=== PATIENT | female | born 1990 | race Caucasian/White ===

== ENCOUNTER 2018-04-17 10:19 | Emergency (ER) | payer MEDICAID ==
[~2018-04-17] VITALS: Ht 172.7 cm; Wt 62.0 kg
[2018-04-17 10:25] VITALS: BP 113/43
== END 2018-04-17 11:21 | disposition home or self-care (01) ==
LOC: ED 11:15
DX: K02.9 Dental caries, unspecified (principal)
CPT/HCPCS: 99283

== ENCOUNTER 2018-05-26 18:20 | Emergency (ER) | payer MEDICAID ==
[~2018-05-26] VITALS: Ht 172.7 cm; Wt 64.0 kg
[2018-05-26 18:34] VITALS: BP 132/82
[2018-05-26 19:00] LABS: BASOPHILS # (AUTO) 0.02 x10^3/uL (0-0.1); BASOPHILS % (AUTO) 0 % (0-1); EOSINOPHILS # (AUTO) 0.01 x10^3/uL (0-0.4); EOSINOPHILS % (AUTO) 0 % (1-7); LYMPHOCYTES # (AUTO) 1.04 x10^3/uL (1-3.4); LYMPHOCYTES % (AUTO) 16 % (22-44); MD NO; MEAN CORPUSCULAR HEMOGLOBIN 30.6 pg (27.0-34.8); MEAN CORPUSCULAR HGB CONC 34.4 g/dL (32.4-35.8); MEAN CORPUSCULAR VOLUME 88.8 fL (80-100); MONOCYTES # (AUTO) 0.54 x10^3/uL (0.2-0.8); MONOCYTES % (AUTO) 8 % (2-9); NEUTROPHILS # (AUTO) 4.83 x10^3/uL (1.8-6.8); NEUTROPHILS % (AUTO) 75 % (42-75); PLATELET COUNT 190 x10^3/uL (130-400); RED CELL DISTRIBUTION WIDTH 12.6 % (9.6-15.2)
[2018-05-26] MEDS ORDERED: ACETAMINOPHEN 500 MG TABLET PO ONE (19:00)
[2018-05-26 19:10] LABS: ANION GAP 10 mmol/L (5-15); CALCIUM 8.5 mg/dL (8.5-10.1); CHLORIDE 109 mmol/L (98-107); CREATININE 0.83 mg/dL (0.55-1.02)
[2018-05-26 19:18] LABS: RAPID INFLUENZA A Negative (Negative); RAPID INFLUENZA B Negative (Negative)
== END 2018-05-26 20:05 | disposition home or self-care (01) ==
LOC: ED 19:59
DX: J06.9 Acute upper respiratory infection, unspecified (principal); Z90.710 Acquired absence of both cervix and uterus; Z88.0 Allergy status to penicillin
CPT/HCPCS: 36415; 71045; 80048; 82040; 85025; 87400; 99285